=== PATIENT | male | born 1950 | race Caucasian/White ===

== ENCOUNTER 2016-06-19 18:59 | Emergency (ER) | payer OTHER, MEDICARE ==
[2016-06-19 19:14] LABS: URINE APPEARANCE Cloudy; URINE BILIRUBIN 1+ (NEGATIVE); URINE BLOOD 3+ (NEGATIVE); URINE COLOR AMBER; URINE GLUCOSE (UA) Negative (NEGATIVE); URINE KETONE Negative (NEGATIVE); URINE LEUK ESTERASE Negative (NEGATIVE); URINE NITRITE Negative (NEGATIVE); URINE PROTEIN 2+ (NEGATIVE); URINE UROBILINOGEN 0.2 E.U/dl (0.2-1.0)
[2016-06-19 19:18] VITALS: BP 146/83; PULSE 69; TEMP 97.7; BMI 30.3
[2016-06-19 19:22] LABS: URINE RBC 40-60 /hpf (0-3)
[2016-06-19 19:23] LABS: URINE BACTERIA FEW /hpf (NEGATIVE)
--- NOTE | 2016-06-19 19:43 | PDOC ---
History of Present Illness - History of Present Illness Initial Comments: 06/19/16 19:50 The patient is a 65 year old male with a past medical hx of ureterolithiasis, diabetes, HTN, and hypercholesterolemia who presents to the ED for evaluation of intermittent hematuria for 2 weeks. The patient states his urine has been a pink color for the past two weeks. He reports at 1800 this evening, he had an episode of bright red blood in his urine. He notes his urine was a much darker red than his previous episodes. He denies any clots in the blood. The patient notes he had left groin pain last night, which has since resolved. He reports he called his PCP today and did not get a call back so he came to the ED for further evaluation. The patient reports passing 10-12 kidney stones in the past, but he has not passed one in 4 years. He reports some dysuria and chills, but denies any back pain, fever, frequency, abdominal pain, nausea, vomiting. <Marcia Berg - Last Filed: 06/19/16 20:37> <Liudmila Genao - Last Filed: 06/20/16 02:03> - General Chief Complaint: Hematuria Stated Complaint: hematuria Time Seen by Provider: 06/19/16 19:01 Past History <Marcia Berg - Last Filed: 06/19/16 20:37> - Past Medical History Asthma: Yes Diabetes: Yes HTN: Yes Hypercholesterolemia: Yes Kidney Stones: Yes Psychiatric Problems: Yes (ANXIETY) - Immunization History Immunization Up to Date: Yes - Psycho/Social/Smoking Cessation Hx Anxiety: Yes Suicidal Ideation: No Smoking Status: No Smoking History: Never smoked Number of Cigarettes Smoked Daily: 0 <Liudmila Genao - Last Filed: 06/20/16 02:03> - Past Medical History Allergies/Adverse Reactions: Allergies Allergy/AdvReac Type Severity Reaction Status Date / Time No Known Allergies Allergy Verified 07/04/11 13:25 Home Medications: Ambulatory Orders Carvedilol [Coreg -] 25 mg PO DAILY 06/19/16 Ciprofloxacin [Cipro (Restricted To Id)] 250 mg PO BID #6 tablet 06/19/16 Clonazepam [KlonoPIN] 1 mg PO DAILY 06/19/16 Glimepiride 2 mg PO DAILY 06/19/16 Losartan Potassium [Cozaar -] 25 mg PO DAILY 06/19/16 Montelukast Na [Singulair -] 10 mg PO HS 06/19/16 Oxycodone HCl/Acetaminophen [Percocet 5-325 mg Tablet] 1 tab PO Q6H PRN #12 tablet MDD 4 tabs 06/19/16 Pioglitazone HCl 30 mg PO DAILY 06/19/16 Sertraline HCl [Zoloft -] 100 mg PO DAILY 06/19/16 Simvastatin 40 mg PO DAILY 06/19/16 Review of Systems - Review of Systems Able to Perform ROS?: Yes Comments:: 06/19/16 19:50 CONSTITUTIONAL: +Chills. Absent: fever, no fatigue EYES: Absent: visual changes ENT: Absent: ear pain, no sore throat CARDIOVASCULAR: Absent: chest pain, no palpitations RESPIRATORY: Absent: cough, no SOB GI: Absent: abdominal pain, no nausea, no vomiting, no constipation, no diarrhea GENITOURINARY: +Hematuria, dysuria. Absent: no frequency MUSCULOSKELETAL: Absent: back pain, no arthralgia, no myalgia SKIN: Absent: rash NEURO: Absent: headache <Marcia Berg - Last Filed: 06/19/16 20:37> *Physical Exam - Vital Signs Last Vital Signs Temp Pulse Resp BP Pulse Ox 97.7 F 69 16 146/83 100 06/19/16 19:05 06/19/16 19:05 06/19/16 19:05 06/19/16 19:05 06/19/16 19:05 - Physical Exam Comments: 06/19/16 19:51 GENERAL: The patient is awake, alert, and fully oriented, in no acute distress. HEAD: Normal with no signs of trauma. EYES: Pupils equal, round and reactive to light, extraocular movements intact, sclera anicteric, conjunctiva clear with no pallor. ENT: Ears normal, nares patent, oropharynx clear without exudates. Moist mucous membranes. NECK: Normal range of motion, supple without lymphadenopathy, JVD, or masses. LUNGS: Breath sounds equal, clear to auscultation bilaterally. No wheeze/ crackles. HEART: Regular rate and rhythm, normal S1 and S2 without murmur or rub. ABDOMEN: Soft/nontender/nondistended. BS wnl. No guarding or rebound. No palpable masses. No hepatosplenomegaly. BACK: Mild left CVA tenderness EXTREMITIES: Normal range of motion, no edema. No clubbing or cyanosis. No cords, erythema, or tenderness. NEUROLOGICAL: Cranial nerves II through XII grossly intact. Normal speech, normal gait. PSYCH: Normal mood, normal affect. SKIN: Warm, Dry, normal turgor, no rashes or lesions noted. <Marcia Berg - Last Filed: 06/19/16 20:37> - Vital Signs Last Vital Signs Temp Pulse Resp BP Pulse Ox 97.7 F 69 16 146/83 100 06/19/16 19:05 06/19/16 19:05 06/19/16 19:05 06/19/16 19:05 06/19/16 19:05 <Liudmila Genao - Last Filed: 06/20/16 02:03> ED Treatment Course - ADDITIONAL ORDERS Additional order review: Laboratory Results 06/19/16 19:05 Urine Color Esther Urine Appearance Cloudy Urine pH 5.0 Ur Specific [place] >= 1.030 H Urine Protein 2+ H Urine Glucose (UA) Negative Urine Ketones Negative Urine Blood 3+ H Urine Nitrite Negative Urine Bilirubin 1+ H Urine Urobilinogen 0.2 e.u/dl Ur Leukocyte Esterase Negative Urine RBC 40-60 Urine WBC 2-5 Ur Epithelial Cells Few Amorphous Urates Few Urine Bacteria Few - RADIOLOGY Radiograph Interpretation: 06/19/16 20:26 CT ABDOMEN AND PELVIS WITHOUT CONTRAST Bilateral nephrolithiasis. 1 cm stone at left ureteropelvic junction. No hydronephrosis. Left perinephric and periureteral fat stranding minimally increased compared to right, probably related to stone at UPJ. Unremarkable pancreas and gallbladder. No bowel obstruction, colitis, free fluid or free air. Appendix not seen. Small right inguinal region hernia containing fat. Top normal size prostate. THIS DOCUMENT HAS BEEN ELECTRONICALLY SIGNED Carrie Sandoval M.D. 06/19/2016 20: 19 EST <Marcia Berg - Last Filed: 06/19/16 20:37> - ADDITIONAL ORDERS Additional order review: Laboratory Results 06/19/16 19:05 Urine Color Esther Urine Appearance Cloudy Urine pH 5.0 Ur Specific [place] >= 1.030 H Urine Protein 2+ H Urine Glucose (UA) Negative Urine Ketones Negative Urine Blood 3+ H Urine Nitrite Negative Urine Bilirubin 1+ H Urine Urobilinogen 0.2 e.u/dl Ur Leukocyte Esterase Negative Urine RBC 40-60 Urine WBC 2-5 Ur Epithelial Cells Few Amorphous Urates Few Urine Bacteria Few <Liudmila Genao - Last Filed: 06/20/16 02:03> Progress Note - Progress Note Progress Note: Documentation has been prepared under my direction and personally reviewed by me in its entirety. I attest that this documented accurately reflects all work, treatment, procedures and medical decision making performed by me. <Liudmila Genao - Last Filed: 06/20/16 02:03> Medical Decision Making - Medical Decision Making As noted above, this 65-year-old man with an extensive history of kidney stones presents with approximately 2 weeks of hematuria which has gradually worsened from "pink" urine to bright red today, left CVA discomfort for several days, left groin pain episode last night that self resolved and dysuria the last day. Patient has not had documented renal colic for approximately 4 years. No previous history of urinary tract infection. The exam, as noted above, notable for mild left CVA tenderness. Urinalysis shows RBCs/WBCs/few bacteria without nitrate/LE. Urine sent for culture and sensitivity Noncontrast renal stone protocol CT as noted above reveals 1 cm left UPJ stone with perinephric stranding (mild); no hydronephrosis and no other obstructing stone. Clinical presentation consistent with renal colic on the left side; because of the large size of the left UPJ stone, urologic consultation will likely be needed. The patient cannot recall name of his urologist. He does have an appointment scheduled tomorrow with his PMD, Dr. Landry. Urologic follow-up will be as per PMD. Meanwhile, because the patient has a history of dysuria, some bacteria in his urinalysis and a history of diabetes, we will start him on empiric antibiotic coverage of possible UTI. Patient has no ALLERGIES and Cipro 250 mg will be administered here. Prescription for Cipro 250 mg twice a day will be sent to his pharmacy. The patient will take Tylenol for mild pain and prescription for Percocet 5/325 (#12) will be transmitted to his pharmacy to be taken as needed for severe pain. one tablet of Percocet 5/325 has been dispensed to the patient for use as needed later tonight. The patient should return to the emergency room if he develops severe, unrelenting pain; fever or vomiting <Liudmila Genao - Last Filed: 06/20/16 02:03> *DC/Admit/Observation/Transfer - Attestations Scribe Attestion: 06/19/16 19:50 Documentation prepared by Marcia Berg, acting as medical device sales representative for Liudmila Genao MD/DO. <Marcia Berg - Last Filed: 06/19/16 20:37> <Liudmila Genao - Last Filed: 06/20/16 02:03> Diagnosis at time of Disposition: Renal colic on left side - Discharge Dispostion Disposition: HOME Condition at time of disposition: Stable - Prescriptions Prescriptions: Ciprofloxacin [Cipro (Restricted To Id)] 250 mg PO BID #6 tablet Oxycodone HCl/Acetaminophen [Percocet 5-325 mg Tablet] 1 tab PO Q6H PRN #12 tablet MDD 4 tabs PRN Reason: Severe Pain - Referrals Referrals: Dony Landry MD [Primary Care Provider] - 24 hours - Patient Instructions Printed Discharge Instructions: Kidney Stones -- Adult Additional Instructions: drink plenty of fluids tylenol as needed for mild pain Percocet as needed for severe pain Cipro 250mg twice a day followup tomorrow with Dr Landry as planned return to ER if you have severe pain/vomiting/fever
[2016-06-19] MEDS ORDERED: CIPROFLOXACIN 250 MG TABLET (RESTRICTED TO ID) PO ONE ×2 (20:38→20:39)
[2016-06-19] MEDS ORDERED: OXYCODONE/APAP 5/325MG COMBO TABLET ONE (20:42)
== END 2016-06-19 20:51 | disposition home or self-care (01) ==
LOC: FER 18:59
DX: N23 Unspecified renal colic (principal); J45.909 Unspecified asthma, uncomplicated; E11.9 Type 2 diabetes mellitus without complications; I10 Essential (primary) hypertension; E78.00 Pure hypercholesterolemia, unspecified; F41.9 Anxiety disorder, unspecified; Z87.442 Personal history of urinary calculi
CPT/HCPCS: 74176; 81003; 81015; 87086; 99282-25

== ENCOUNTER 2016-08-10 06:16 | Day surgery (SDC) | payer OTHER, MEDICARE ==
[2016-08-09 11:34] VITALS: BMI 30.9
[2016-08-10] MEDS ORDERED: ACETAMINOPHEN 1000 MG/100 ML VIAL (NON FORMULARY) IVPB ONE (08:02)
--- NOTE | 2016-08-10 08:04 | HP ---
History & Physical Update - History History: No Change - Physical Physical: No Change - Assessment Assessment: No Change - Plan Plan: No Change
[2016-08-10] MEDS ORDERED: MIDAZOLAM HCL 2 MG/2 ML SINGLE DOSE VIAL ONE ×3 (08:06→08:14)
[2016-08-10] MEDS ORDERED: ceFAZolin SODIUM 1 GM VIAL IVPB ONE (08:08)
[2016-08-10] MEDS ORDERED: ceFAZolin SODIUM 1 GM VIAL ONE (08:12)
[2016-08-10] MEDS ORDERED: SUCCINYLCHOLINE CHLORIDE 200 MG/10 ML VIAL ONE (08:12)
[2016-08-10] MEDS ORDERED: PROPOFOL 20 ML ONE (08:12)
[2016-08-10] MEDS ORDERED: DEXTROSE 5%-0.45% SALINE 1,000 ML IV SCH (08:15)
[2016-08-10] MEDS ORDERED: ONDANSETRON 4 MG/2 ML VIAL IVPUSH PRN (08:54)
[2016-08-10] MEDS ORDERED: PROMETHAZINE HCL 25 MG/1 ML VIAL IVPUSH PRN (08:54)
[2016-08-10] MEDS ORDERED: oxyCODONE HCL 5 MG TABLET PO PRN (08:54)
[2016-08-10] MEDS ORDERED: LACTATED RINGERS SOLUTION 1,000 ML IV SCH (09:00)
[2016-08-10 10:23] VITALS: TEMP 97.8
[2016-08-10 13:54] VITALS: BP 136/76; PULSE 50
--- NOTE | 2016-09-15 11:38 | OP ---
DATE OF OPERATION: 08/10/2016 PREOPERATIVE DIAGNOSIS: Hematuria and left renal calculus. POSTOPERATIVE DIAGNOSIS: Hematuria and left renal calculus. PROCEDURE: Left extracorporeal shock wave lithotripsy. SURGEON: Horace Smith MD ANESTHESIOLOGIST: Lexii Guerra MD FINDINGS: A large stone in the left kidney. PREOPERATIVE INDICATIONS: The patient was undergoing a workup for hematuria, was noted to have a large stone in his kidney. He initially deferred treatment. However, then, he started developing pain. He comes to the OR for ESWL. THE OPERATION: The patient was brought to the OR, placed on the table in the supine position, given general sedation and IV antibiotics. Time-out was performed. The stone was visualized with fluoroscopy. Then, 2500 shocks were applied to the stone as the stone was strangulated and localized. The patient tolerated the procedure well. He was woken up. HORACE SMITH M.D. [id number]
== END 2016-08-10 12:30 | disposition home or self-care (01) ==
LOC: JASU-SURG 06:16
PROVIDERS: ATTEND Urology
PROC: 0TF4XZZ Fragmentation in Left Kidney Pelvis, External Approach (ICD-10-PCS; principal; 2016-08-10 08:00)
DX: N20.0 Calculus of kidney (principal); R31.9 Hematuria, unspecified
CPT/HCPCS: 94760

== ENCOUNTER 2016-09-21 11:45 | Emergency (ER) | payer OTHER, MEDICARE ==
[2016-09-21 12:02] VITALS: BP 157/88; PULSE 52; TEMP 98.2; BMI 30.3
[2016-09-21] MEDS ORDERED: KETOROLAC TROMETHAMINE 30 MG/1 ML VIAL IVPUSH ONE (12:32)
[2016-09-21] MEDS ORDERED: KETOROLAC TROMETHAMINE 30 MG/1 ML VIAL ONE (12:32)
[2016-09-21] MEDS ORDERED: SODIUM CHLORIDE 1,000 ML IV STA (12:32)
--- NOTE | 2016-09-21 12:32 | PDOC ---
History of Present Illness - General History Source: Patient, Old Records Exam Limitations: No Limitations - History of Present Illness Initial Comments: 09/21/16 12:43 The patient is a 66 year old male with a significant past medical history of ureterolithiasis, diabetes, HTN, kidney stones, and hypercholesterolemia, who presents to the emergency department today with abdominal pain and hematuria today. The patient notes that his symptoms are similar to his previous instances of kidney stones. The patient states that one month ago he had surgery after presenting with kidney stones. The patient states that he did not try to treat his pain at home. PAST MEDICAL HISTORY: No significant history reported PAST SURGICAL HISTORY: No significant history reported FAMILY HISTORY: No pertinent history reported SOCIAL HISTORY: None reported ALLERGIES: NKDA MEDICATIONS: Reviewed <Hector Miranda - Last Filed: 09/21/16 12:43> - General History Source: Patient, Old Records Exam Limitations: No Limitations <Maryuri Reed - Last Filed: 09/21/16 17:19> - General Stated Complaint: KIDNEY STONES Time Seen by Provider: 09/21/16 12:15 Past History <Hector Miranda - Last Filed: 09/21/16 12:43> - Past Medical History Anemia: No Asthma: Yes Cancer: No Cardiac Disorders: No CVA: No COPD: No CHF: No Dementia: No Diabetes: Yes GI Disorders: No Disorders: No HTN: Yes Hypercholesterolemia: Yes Kidney Stones: Yes Liver Disease: No Psychiatric Problems: Yes (ANXIETY) Seizures: No Thyroid Disease: No - Immunization History Immunization Up to Date: Yes - Psycho/Social/Smoking Cessation Hx Anxiety: No Suicidal Ideation: No Smoking Status: No Smoking History: Never smoked Have you smoked in the past 12 months: No Number of Cigarettes Smoked Daily: 0 Information on smoking cessation initiated: No Hx Alcohol Use: No Drug/Substance Use Hx: No Substance Use Type: None Hx Substance Use Treatment: No <Maryuri Reed - Last Filed: 09/21/16 17:19> - Past Medical History Allergies/Adverse Reactions: Allergies Allergy/AdvReac Type Severity Reaction Status Date / Time No Known Allergies Allergy Verified 09/21/16 12:02 Home Medications: Ambulatory Orders Carvedilol [Coreg -] 25 mg PO BID 06/19/16 Clonazepam [KlonoPIN] 1 mg PO DAILY 06/19/16 Glimepiride 2 mg PO DAILY 06/19/16 Losartan Potassium [Cozaar -] 25 mg PO DAILY 06/19/16 Montelukast Na [Singulair -] 10 mg PO HS 06/19/16 Pioglitazone HCl 30 mg PO DAILY 06/19/16 Sertraline HCl [Zoloft -] 200 mg PO DAILY 06/19/16 Simvastatin 40 mg PO DAILY 06/19/16 Clopidogrel Bisulfate [Clopidogrel] 75 mg PO DAILY 08/09/16 Amox-Tr/K Cl [Augmentin 875-125mg Tablet -] 1 tab PO BID #14 tablet 08/10/16 Oxycodone HCl/Acetaminophen [Percocet 5-325 mg Tablet -] 1 tab PO Q4H #10 tablet MDD 6 08/10/16 Review of Systems - Review of Systems Able to Perform ROS?: Yes Comments:: 09/21/16 12:43 CONSTITUTIONAL: Absent: fever, chills, diaphoresis, generalized weakness, malaise, loss of appetite HEENT: Absent: rhinorrhea, nasal congestion, throat pain, throat swelling, difficulty swallowing, mouth swelling, ear pain, eye pain, visual Changes CARDIOVASCULAR: Absent: chest pain, syncope, palpitations, irregular heart rate, lightheadedness , peripheral edema RESPIRATORY: Absent: cough, shortness of breath, dyspnea with exertion, orthopnea, wheezing, stridor, hemoptysis GASTROINTESTINAL: Present: Abdominal pain Absent: abdominal distension, nausea, vomiting, diarrhea, constipation, melena, hematochezia GENITOURINARY: Present: Hematuria Absent: dysuria, frequency, urgency, hesitancy, genital pain MUSCULOSKELETAL: Absent: myalgia, arthralgia, joint swelling SKIN: Absent: rash, itching, pallor HEMATOLOGIC/IMMUNOLOGIC: Absent: easy bleeding, easy bruising, lymphadenopathy, frequent infections ENDOCRINE: Absent: unexplained weight gain, unexplained weight loss, heat intolerance, cold intolerance NEUROLOGIC: Absent: headache, focal weakness or paresthesias, dizziness, unsteady gait, seizure, mental status changes, bladder or bowel incontinence PSYCHIATRIC: Absent: anxiety, depression, suicidal or homicidal ideation, hallucinations. <Hector Miranda - Last Filed: 09/21/16 12:43> *Physical Exam - Vital Signs Last Vital Signs Temp Pulse Resp BP Pulse Ox 98.2 F 52 L 18 157/88 100 09/21/16 11:52 09/21/16 11:52 09/21/16 11:52 09/21/16 11:52 09/21/16 11:52 - Physical Exam Comments: 09/21/16 12:43 GENERAL: Well developed, well nourished. Awake and alert. In no acute distress. HEENT: Normocephalic, atraumatic. PERRLA, EOMI. No conjunctival pallor. Sclera are non- icteric. Moist mucous membranes. Oropharynx is clear. NECK: Supple. Full ROM. No JVD. Carotid pulses 2+ and symmetric, without bruits. No thyromegaly. No lymphadenopathy. CARDIOVASCULAR: Regular rate and rhythm. No murmurs, rubs, or gallops. Distal pulses are 2+ and symmetric. PULMONARY: No evidence of respiratory distress. Lungs clear to auscultation bilaterally. No wheezing, rales or rhonchi. ABDOMINAL: (+) Suprapubic tenderness on palpation. Soft. Non-tender. Non-distended. No rebound or guarding. No organomegaly. Normoactive bowel sounds. MUSCULOSKELETAL Normal range of motion at all joints. No bony deformities or tenderness. No CVA tenderness. EXTREMITIES: No cyanosis. No clubbing. No edema. No calf tenderness. SKIN: Warm and dry. Normal capillary refill. No rashes. No jaundice. NEUROLOGICAL: Alert, awake, appropriate. Cranial nerves 2-12 intact. No deficits to light touch and temperature in face, upper extremities and lower extremities. No motor deficits in the in face, upper extremities and lower extremities. Normoreflexic in the upper and lower extremities. Normal speech. Toes are downgoing bilaterally. Gait is normal without ataxia. PSYCHIATRIC: Cooperative. Good eye contact. Appropriate mood and affect. <Hector Miranda - Last Filed: 09/21/16 12:43> - Vital Signs Last Vital Signs Temp Pulse Resp BP Pulse Ox 98.2 F 52 L 18 157/88 100 09/21/16 11:52 09/21/16 11:52 09/21/16 11:52 09/21/16 11:52 09/21/16 11:52 <Maryuri Reed - Last Filed: 09/21/16 17:19> ED Treatment Course - Medications Given in the ED: ED Medications Discontinued Medications Generic Name Dose Route Start Last Admin Trade Name Ashley PRN Reason Stop Dose Admin Ketorolac Tromethamine 30 mg 09/21/16 12:32 09/21/16 12:37 Toradol Injection - IVPUSH 09/21/16 12:33 30 mg ONCE ONE Administration <Hector Miranda - Last Filed: 09/21/16 12:43> - LABORATORY CBC & Chemistry Diagram: 09/21/16 12:40 09/21/16 12:40 <Maryuri Reed - Last Filed: 09/21/16 17:19> Medical Decision Making - Medical Decision Making 09/21/16 12:35 66-year-old male with history of bilateral nephrolithiasis s/p lithotripsy in August 2016, hypertension, diabetes presents the emergency Department with complaints of hematuria and suprapubic discomfort since this morning. Differential diagnosis includes but is not limited to: Renal colic, UTI, electrolyte abnormality, toxic/metabolic derangement, anemia. Plan: 1. Labs 2. Urine analysis 3. Pain management 4. Observe and reevaluate 09/21/16 17:18 Addendum: Labs were reviewed and are noted in the EMR. Urine has no nitrites or LE but has +RBC and WBC. CT scan results are pending. The patient is pain free and wants to go home. Will get CT read and discharge with follow-up. Return to the ED if Sx persist, worsen or new Sx arise. <Maryuri Reed - Last Filed: 09/21/16 17:19> *DC/Admit/Observation/Transfer - Attestations Scribe Attestion: 09/21/16 12:44 Documentation prepared by Hector Miranda, acting as medical billing instructor for Maryuri Reed MD. <Hector Miranda - Last Filed: 09/21/16 12:43> - Discharge Dispostion Admit: No - Attestations Physician Attestion: 09/21/16 12:35 I, Dr. Maryuri Reed, attest that the scribes documentation that appears above has been prepared under my direction and personally reviewed by me in its entirety. I confirmed that the note above accurately reflects all work, treatment, procedures, and medical decision-making performed by me. <Maryuri Reed - Last Filed: 09/21/16 17:19> Diagnosis at time of Disposition: Hematuria, Bilateral nephrolithiasis, Salivary gland obstruction - Discharge Dispostion Disposition: HOME Condition at time of disposition: Stable - Patient Instructions Printed Discharge Instructions: Kidney Stones -- Adult Additional Instructions: Follow-up with your urologist within the next week. Return to the ED if your symptoms persist, worsen or new symptoms arise.
[2016-09-21 13:01] LABS: BASOPHIL 0.8 % (0-2.0); EOSINOPHIL 3.2 % (0-4.5); MCH 29.8 pg (25.7-33.7); MCHC 33.4 g/dl (32.0-35.9); MEAN CELL VOLUME 89.3 fl (80-96); MEAN PLT VOLUME 7.9 fl (7.5-11.1); PLATELET COUNT 181 K/MM3 (134-434); RDW 14.1 % (11.9-15.9); WHITE BLOOD COUNT 6.2 K/mm3 (4.0-10.0)
[2016-09-21 13:35] LABS: ANION GAP 8 (8-16); CO2 28 mmol/L (21-32); CREATININE 1.4 mg/dL (0.7-1.3); GLUCOSE,RANDOM 124 mg/dL (74-106); PHOSPHOROUS 2.7 mg/dL (2.5-4.9)
[2016-09-21 15:24] LABS: URINE APPEARANCE CLEAR; URINE BILIRUBIN NEGATIVE (NEGATIVE); URINE COLOR RED; URINE GLUCOSE (UA) NEGATIVE (NEGATIVE); URINE KETONE NEGATIVE (NEGATIVE); URINE LEUK ESTERASE NEGATIVE (NEGATIVE); URINE NITRITE NEGATIVE (NEGATIVE); URINE UROBILINOGEN NEGATIVE E.U./dl (0.2-1.0)
[2016-09-21 15:33] LABS: URINE BLOOD 3+ (NEGATIVE); URINE PROTEIN 2+ (NEGATIVE)
[2016-09-21 15:50] LABS: URINE MUCUS RARE; URINE RBC 1084 /hpf (0-3); URINE WBC 92 /hpf (3-5)
== END 2016-09-21 17:26 | disposition home or self-care (01) ==
LOC: JER 11:45
PROC: 3E0333Z Introduction of Anti-inflammatory into Peripheral Vein, Percutaneous Approach (ICD-10-PCS; principal; 2016-09-21)
PROC: 3E0337Z Introduction of Electrolytic and Water Balance Substance into Peripheral Vein, Percutaneous Approach (ICD-10-PCS; 2016-09-21)
DX: N20.0 Calculus of kidney (principal); K11.8 Other diseases of salivary glands; R31.9 Hematuria, unspecified; E11.9 Type 2 diabetes mellitus without complications; I10 Essential (primary) hypertension; E78.00 Pure hypercholesterolemia, unspecified; J45.909 Unspecified asthma, uncomplicated; F41.9 Anxiety disorder, unspecified
CPT/HCPCS: 36415; 74176-TC; 80048; 81003; 81015; 83735; 84100; 85025; 87086; 96361; 96374; 99282-25